=== PATIENT | female | born 1955 | race Caucasian/White ===

== ENCOUNTER 2025-05-10 00:39 | Inpatient (IN) ==
[2025-05-10 01:00] LABS: HCT - HEMATOCRIT 36.3 % (37.0-47.0); HGB - HEMOGLOBIN 11.9 g/dL (12.0-16.0); MEAN PLATELET VOLUME 10.7 fL (7.9-10.8); NRBC ABSOLUTE COUNT (AUTO) 0.00 x10^3/uL; NUCLEATED RED BLOOD CELLS AUTO 0.0 /100WBC; PLT - PLATELET COUNT 202 10^3/uL (130-450); RED CELL DISTRIBUTION WIDTH 12.9 % (12.0-15.0)
[2025-05-10 01:17] LABS: ALT ALANINE AMINOTRANSFERASE 26 IU/L (10-60); AST ASPARTATE AMINOTRANSFERASE 27 IU/L (10-42); BUN - BLOOD UREA NITROGEN 20 mg/dL (6-20); CARBON DIOXIDE - CO2 24 mmol/L (21-32); CREATININE 1.4 mg/dL (0.6-1.3); GFR - MDRD 37 (>89)
--- NOTE | 2025-05-10 01:17 | XRAY Report ---
PROCEDURE: XR Chest 1V INDICATIONS: Chest Pain TECHNIQUE: One view of the chest was acquired. COMPARISON: None. FINDINGS: Surgical changes and devices: None. Lungs and pleura: No pleural effusions or pneumothorax. No consolidation. Mediastinum: Mediastinal contours appear normal. Heart size is normal. Bones and chest wall: No suspicious bony lesions. Overlying soft tissues appear unremarkable. IMPRESSION: No acute cardiopulmonary process. Reviewed by: Giovanni Wright MD on 05/10/2025 1:15 AM PDT Approved by: Giovanni Wright MD on 05/10/2025 1:15 AM PDT Station ID: [id number]
--- NOTE | 2025-05-10 01:19 | ED Physician Documentation ---
History of Present Illness Stated complaint Stated Complaint: SYNCOPE Chief complaint Chief Complaint: Neuro Additonal information Additional information: 69yF presents with 7 days of uri symptoms, cough, soa, as well as nbnb n/v and diarrhea with fainting episode tonight. endorses body aches, fever and chills Meds/Allgy Home Medications Ambulatory Orders Medication Instructions Recorded Confirmed amitriptyline 50 mg tablet 50 mg PO DAILY 03/13/25 atenolol 50 mg tablet 50 mg PO DAILY 03/13/2504/19 citalopram 20 mg tablet 20 mg PO DAILY 03/13/2504/19 hydrochlorothiazide 12.5 mg capsule 12.5 mg PO QAM 05/06/25 losartan 25 mg tablet 25 mg PO DAILY 03/13/2504/19 melatonin 3 mg capsule 3 mg PO HS PRN sleep 5 05/06/25 prednisone 10 mg tablets in a dose See Rx Instructions PO .COMPLEX 03/13/25 05/06/25 pack #21 ea simvastatin 10 mg tablet 10 mg PO DAILY 03/13/2504/19 sumatriptan succinate 25 mg tablet 25 mg PO Q2H PRN mi graine headache 03/13/25 05/06/25 (Imitrex) tirzepatide (weight loss) 10 10 mg subcut QWEEK 05/06/25 mg/0.5 mL subcutaneous solution (Zepbound) Allergies Allergies Allergy/AdvReac Type Severity Reaction Status Date / Time No Known Drug Allergies Allergy Verified 05/10/25 00:44 PFSH Active Problems All Active Problems (Updated 05/10/25 @ 01:21 by Mary Madrigal MD) Hypoxia (Acute) Acute hypotension (Acute) Syncope (Acute) ELO (acute kidney injury) (Acute) Hypokalemia (Acute) Viral upper respiratory tract infection (Acute) Blurred vision, right eye (Acute) Headache (Acute) Medical History Medical History (Updated 05/10/25 @ 01:21 by Mary Madrigal MD) Ocular migraine Migraine High cholesterol Hypertension Social History Social History (Updated 05/07/25 @ 13:01 by Rm Le PA-C) Smoking Status: Smoker current status unk Living arrangement: At home Marital Status: Living Condition: With family Support Person: No Do you feel safe in your home environment?: Yes History of physical, verbal, emotional, or financial abuse?: No POLST Patient has POLST: No Exam Exam Vital Signs: Vital Signs x48h Temp Pulse Resp BP Pulse Ox 05/10/25 01:05 88 20 112/67 93 05/10/25 00:45 36.6 C 110 H 20 81/55 L 93 Constitutional normal general appearance, no apparent distress and average body habitus HENMT normocephalic, head/scalp atraumatic and oropharynx normal Eyes PERRL and EOMs intact bilaterally Neck/C-Spine visual inspection normal Chest inspection of chest normal Respiratory breath sounds equal bilaterally coarse bl breath sounds Cardiovascular regular rhythm noted tachycardic rate Gastrointestinal abdomen soft to palpation and nontender to palpation Genitourinary no CVA tenderness Extremities normal to inspection Results Vitals Vitals: Vital Signs - 24 hr 05/10/25 00:45 05/10/25 01:05 Temperature 36.6 C Temperature Source Temporal Artery Scan Pulse Rate 110 H 88 Respiratory Rate 20 20 Blood Pressure 81/55 L 112/67 O2 Saturation 93 93 O2 Source Room air Room air Pain Intensity 0 Oxygen O2 Source Room air Labs Labs: Laboratory Tests 05/10/25 00:56 WBC 16.5 H RBC 3.84 L Hgb 11.9 L Hct 36.3 L MCV 94.5 MCH 31.0 MCHC 32.8 RDW 12.9 Plt Count 202 MPV 10.7 Neut # (Auto) 13.2 H Lymph # (Auto) 2.0 Wilcox # (Auto) 1.1 H Eos # (Auto) 0.0 Baso # (Auto) 0.0 Absolute Nucleated RBC 0.00 Nucleated RBC % 0.0 Sodium 132 L Potassium 2.7 L Chloride 95 L Carbon Dioxide 24 Anion Gap 13.0 BUN 20 Creatinine 1.4 H Estimated GFR (MDRD) 37 L Glucose 143 H Calcium 8.0 L Total Bilirubin 1.2 H AST 27 ALT 26 Alkaline Phosphatase 64 Troponin I High Sens 10.1 Total Protein 6.1 L Albumin 3.4 Globulin 2.7 Albumin/Globulin Ratio 1.3 Lipase < 10 L PD Medical Decision Making ED course ED course: 69yF p/w persistent cough, soa, n/v/d with fainting episode tonight. Patient appears dehydrated on exam. leukocytosis, elo , hypokalemia on labwork. IV rocephin/azithro and IVF provided empirically given initial tachycardia and hypotension on arrival. d/w Dr. morin for admission Discharge Plan Discharge Patient Disposition: [facility] DC/Xfer Condition: Poor Clinical Impression: Hypokalemia, ELO (acute kidney injury), Syncope, Acute hypotension, Hypoxia Prescriptions: No Action atenolol 50 mg tablet 50 mg PO DAILY Zepbound 10 mg/0.5 mL solution 10 mg subcut QWEEK citalopram 20 mg tablet 20 mg PO DAILY losartan 25 mg tablet 25 mg PO DAILY amitriptyline 50 mg tablet 50 mg PO DAILY simvastatin 10 mg tablet 10 mg PO DAILY melatonin 3 mg capsule 3 mg PO HS PRN (Reason: sleep) sumatriptan succinate [Imitrex] 25 mg tablet 25 mg PO Q2H PRN (Reason: migraine headache) Rx Instructions: do not exceed 8 doses per 24 hrs hydrochlorothiazide 12.5 mg capsule 12.5 mg PO QAM prednisone 10 mg tablets,dose pack See Rx Instructions .ROUTE .COMPLEX Qty: 21 0RF Rx Instructions: orally per package directions Print Language: French
[2025-05-10 01:21] LABS: TROPONIN I HIGH SENSITIVITY 10.1 ng/L (2.3-14.8)
[2025-05-10] MEDS: cefTRIAXone 2 GM in SODIUM CHLORIDE 0.9% MINIBAG 100 ML IV STA (01:31)
[2025-05-10] MEDS: AZITHROMYCIN INJ 500 MG in SODIUM CHLORIDE 0.9% 250 ML IV STA (01:31)
[2025-05-10] MEDS: SODIUM CHLORIDE 0.9% 2,500 ML IV ONE (01:32)
[2025-05-10] MEDS: ONDANSETRON 4 MG/2 ML VIAL IVP STA (01:33)
[2025-05-10] MEDS: KETOROLAC 15 MG/ML VIAL IVP STA (01:41)
[2025-05-10] MEDS: POTASSIUM CHLOR 10 MEQ/100 ML 10 MEQ/100 ML BAG IV STA (01:43)
[2025-05-10] MEDS: POTASSIUM CHLORIDE 20 MEQ/15 ML UDC PO STA (01:54)
--- NOTE | 2025-05-10 02:20 | HISTORY & PHYSICAL EXAMINATION ---
Chief Complaint Chief Complaint Chief Complaint: nausea, vomitting and diarrhea History of Present Illness Admitted From Admitted From:: ED arrive via EMS History Obtained From Records Reviewed: Y History obtained from: ED physician and patient Exam Limitations: telemedicine History of Present Illness HPI Comment/Other: Mrs. Perez is a 69yoF with h/o hypertension, hyperlipidemia, and migraines. she presented to the ED for evaluation of nausea, vomiting and diarrhea that had been persistent for the past week. Symptoms were preceded by vague upper respiratory symptoms: cough, headache, congestion. She denies any sick contacts or recent travel. she underwent workup at an outside clinic. Her flu,covid, rsv was negative. however, she did not improve with conservative measure adn started to become increasingly weak. On the day of presentation she had a syncopal episode. She did not loose consciousness or hit her head. She explained that she has not been able to keep any food or water down. workup upon arrial to the ED, she was hypotensive with SBP 80s and was tachycardia with HR 120s. Labs were consistent with ELO , creatnine elevated at 1.4 (baseline 1). she also had electrolyte abnormalities. she was afebrile on presentation. chest xray did not pneumonia. This visit was performed using telehealth tools, including phone and live-video. patient provided verbal consent to complete this telemedicine encounter. During the time my interview and evaluation, the patient was located at [facility] in the [facility], I was located in [place]. . Review of Systems Status of ROS: 10 or more systems reviewed and unremarkable except as noted in history and below PFSH Active Problems All Active Problems (Updated 05/10/25 @ 02:17 by Noemi Muniz MD) Nausea vomiting and diarrhea (Acute) Sepsis (Acute) Hypoxia (Acute) Acute hypotension (Acute) Syncope (Acute) ELO (acute kidney injury) (Acute) Hypokalemia (Acute) Viral upper respiratory tract infection (Acute) Blurred vision, right eye (Acute) Headache (Acute) Medical History Medical History (Updated 05/10/25 @ 02:17 by Noemi Muniz MD) Ocular migraine Migraine High cholesterol Hypertension Social History Social History (Updated 05/07/25 @ 13:01 by Rm Le PA-C) Smoking Status: Smoker current status unk Living arrangement: At home Marital Status: Living Condition: With family Support Person: No Do you feel safe in your home environment?: Yes History of physical, verbal, emotional, or financial abuse?: No POLST Patient has POLST: No Meds/Allgy Home Medications Ambulatory Orders Medication Instructions Recorded Confirmed amitriptyline 50 mg tablet 50 mg PO DAILY 03/13/25 atenolol 50 mg tablet 50 mg PO DAILY 03/13/2504/19 citalopram 20 mg tablet 20 mg PO DAILY 03/13/2504/19 hydrochlorothiazide 12.5 mg capsule 12.5 mg PO QAM 05/06/25 losartan 25 mg tablet 25 mg PO DAILY 03/13/2504/19 melatonin 3 mg capsule 3 mg PO HS PRN sleep 5 05/06/25 prednisone 10 mg tablets in a dose See Rx Instructions PO .COMPLEX 03/13/25 05/06/25 pack #21 ea simvastatin 10 mg tablet 10 mg PO DAILY 03/13/2504/19 sumatriptan succinate 25 mg tablet 25 mg PO Q2H PRN mi graine headache 03/13/25 05/06/25 (Imitrex) tirzepatide (weight loss) 10 10 mg subcut QWEEK 05/06/25 mg/0.5 mL subcutaneous solution (Zepbound) Allergies Allergies Allergy/AdvReac Type Severity Reaction Status Date / Time No Known Drug Allergies Allergy Verified 05/10/25 00:44 Exam Exam Vital Signs: Vital Signs x48h Temp Pulse Resp BP Pulse Ox 05/10/25 01:05 88 20 112/67 93 05/10/25 00:45 36.6 C 110 H 20 81/55 L 93 Examination as recorded is based on patient and staff reported information as well as peripheral observation Constitutional normal general appearance and distress noted Respiratory breath sounds unequal, auscultation abnormal and rales noted Cardiovascular normal heart rate noted and regular rhythm noted Gastrointestinal abdomen normal to inspection Extremities normal to inspection Neurology no focal motor deficit noted and no sensory deficits noted Psychiatry mental status grossly normal and oriented x3 Sepsis Event Note (H) Evaluation Current Stage of Sepsis: Severe sepsis Possible source of Sepsis: positive Pulmonary, GI tract/intra-abdominal and Genitourinary Sepsis Criteria Sepsis Criteria: Recorded Heart Rate greater than 90 bpm, WBC count greater than 12,000 or less than 4000 and SBP less than 90 mmHg Conclusion/Plan Problem List (1) Sepsis: Plan: criteria of severe sepsis met on presentation: 80/50, HR110, RR 24, WBC 16.5, ELO -etiology suspected pulmonary and GI, like viral infection -chart reviewed: flu, covid , and rsv negative -chest xray reviewed adn negative for infiltrates or consolidation, will repeat after IVF -contnue with empiric antibiotics: rocephin and azithromycin, monitor for response and toxicity -incentive spirometry, -cultures pneding (2) Nausea vomiting and diarrhea: Plan: suspected viral infection. -will obtain UA to evalautate for possible etiology -continue with conservative managment: antiemetics, IVF, advance diet as tolerated to clear liquid -close monitor of electrlytes and volume status (3) ELO (acute kidney injury): Plan: pre-renal in the setting of GI volume loss and hypotension -trend renal labes -monitor UOP -avoid nephrotoxic medications (4) Viral upper respiratory tract infection: Plan: chest xray negative on presentation, will repeat in the AM -viral panel negative -continue with supportive care and empiric antibiotics Lab Results Lab results reviewed: Yes 05/10/25 00:56 05/10/25 00:56 Diagnostic Imaging Results Diagnostic Imaging Results: positive Final report reviewed Core Measures Anticipated LOS I expect patient to be DC'd or transferred within 96 hours.: Yes DVT/VTE - Prophylaxis VTE/DVT Device ordered at admit?: Yes Telemedicine Consult Details Provider Location & Consult Time Telemedicine consultation conducted via videoconferencing?: Yes
[2025-05-10 02:52] LABS: CORONAVIRUS 229E-RESP PCR NOT DETECTED; CORONAVIRUS HKU1-RESP PCR NOT DETECTED; CORONAVIRUS NL63-RESP PCR NOT DETECTED; CORONAVIRUS OC43-RESP PCR NOT DETECTED; HUMAN METAPNEUMOVIRUS NOT DETECTED; INFLUENZA A- RESP PCR PANEL NOT DETECTED; RHINOVIRUS/ENTEROVIRUS NOT DETECTED; SARS-CoV-2 -RESP PCR PANEL NOT DETECTED
[2025-05-10 02:53] LABS: B. PARAPERTUSSIS- RESP PCR PAN NOT DETECTED; B. PERTUSSIS- RESP PCR PANEL NOT DETECTED; C. PNEUMONIAE- RESP PCR PANEL NOT DETECTED; INFLUENZA B - RESP PCR PANEL NOT DETECTED; M. PNEUMONIAE- RESP PCR PANEL NOT DETECTED; PARAINFLUENZA VIRUS 1 DETECTED; PARAINFLUENZA VIRUS 2 NOT DETECTED; PARAINFLUENZA VIRUS 4 NOT DETECTED; RSV- RESP PCR PANEL NOT DETECTED
[2025-05-10] MEDS ORDERED: SODIUM CHLORIDE 0.9% 1,000 ML ONE (05:03)
[2025-05-10] MEDS ORDERED: ONDANSETRON ODT 4 MG TABLET TL PRN (05:04)
[2025-05-10] MEDS ORDERED: SODIUM CHLORIDE FLUSH 0.9% 10 ML SYRINGE IVP PRN (05:04)
[2025-05-10] MEDS: SODIUM CHLORIDE 0.9% 1,000 ML IV SCH (05:06)
[2025-05-10 07:52] LABS: BUN - BLOOD UREA NITROGEN 19.0 mg/dL (6-20); CARBON DIOXIDE - CO2 23.0 mmol/L (21-32); CREATININE 1.2 mg/dL (0.6-1.3); GFR - MDRD 44.0 (>89)
[2025-05-10] MEDS: AMITRIPTYLINE 25 MG TABLET PO SCH (08:40)
[2025-05-10] MEDS: POTASSIUM CHLORIDE 20 MEQ TABLET PO ONE ×2 (08:40→14:36)
[2025-05-10] MEDS: SODIUM CHLORIDE FLUSH 0.9% 10 ML SYRINGE IVP SCH (08:41)
[2025-05-10] MEDS ORDERED: SIMVASTATIN 10 MG PO SCH (09:00)
[2025-05-10] MEDS: ONDANSETRON 4 MG/2 ML VIAL IVP PRN (14:36)
--- NOTE | 2025-05-10 15:10 | XRAY Report ---
PROCEDURE: XR Chest 1V INDICATIONS: shortness of breath TECHNIQUE: One view of the chest was acquired. COMPARISON: 05/10/2025. FINDINGS: Surgical changes and devices: None. Lungs and pleura: No pleural effusions or pneumothorax. No consolidation. Mediastinum: Mediastinal contours appear normal. Heart size is normal. Bones and chest wall: No suspicious bony lesions. Overlying soft tissues appear unremarkable. IMPRESSION: No acute cardiopulmonary process. Reviewed by: Pedro Varma MD on 05/10/2025 3:09 PM PDT Approved by: Pedro Varma MD on 05/10/2025 3:09 PM PDT Station ID: [id number]
--- NOTE | 2025-05-10 15:28 | PHARMACY PROGRESS NOTE ---
Best Possible Medication History Admit Date and Time: 05/10/25 0152 Home Medications Medication Instructions Recorded Confirmed Type atenolol 50 mg tablet 50 mg PO DAILY 03/13/2504/20 History citalopram 20 mg tablet 20 mg PO DAILY 03/13/2504/20 History melatonin 3 mg capsule 3 mg PO HS PRN sleep 5 05/10/25 History sumatriptan succinate 25 mg tablet 25 mg PO Q2H PRN mi graine headache 03/13/25 05/10/25 History (Imitrex) tirzepatide (weight loss) 10 5 mg subcut QWEEK 5 05/10/25 History mg/0.5 mL subcutaneous solution (Zepbound) losartan 100 1 tab PO DAILY 05/10/2504/20 History mg-hydrochlorothiazide 25 mg tablet Processed by: Pharmacy (Medication reconciliation ) Medications reviewed in ED?: No Medication History completed: Yes Patient Interview: Completed Secondary Source(s): Insurance records (Called and discussed with [facility] ) [facility] Statement: As the person ultimately responsible for medication therapy, providers are able to order a medication from an existing home medication list in [facility] via the "Reconcile Routine" prior to Confirmation of that medication by marketing support coordinator. Such practice is discouraged except when the physician, in their clinical judgment, deems that a medical need exists for a medication without regard to previous use.
[2025-05-10] MEDS: cefTRIAXone 1 GM in SODIUM CHLORIDE 0.9% MINIBAG 100 ML IV SCH (20:12)
[2025-05-10] MEDS: PRAVASTATIN 10 MG TABLET PO SCH (20:12)
[2025-05-11] MEDS: AZITHROMYCIN INJ 500 MG in SODIUM CHLORIDE 0.9% 250 ML IV SCH (00:15)
[2025-05-11] MEDS: ACETAMINOPHEN 325 MG TABLET PO PRN (05:15)
[2025-05-11 10:02] LABS: HCT - HEMATOCRIT 32.4 % (37.0-47.0); HGB - HEMOGLOBIN 10.8 g/dL (12.0-16.0); MEAN PLATELET VOLUME 10.1 fL (7.9-10.8); PLT - PLATELET COUNT 252.0 10^3/uL (130-450); RED CELL DISTRIBUTION WIDTH 13.2 % (12.0-15.0)
[2025-05-11] MEDS: BENZOCAINE/MENTHOL LOZENGE MM PRN (10:11)
[2025-05-11 10:19] LABS: BUN - BLOOD UREA NITROGEN 9.0 mg/dL (6-20); CARBON DIOXIDE - CO2 23.0 mmol/L (21-32); CREATININE 0.9 mg/dL (0.6-1.3); GFR - MDRD 62.0 (>89)
--- NOTE | 2025-05-11 11:22 | PROVIDER PROGRESS NOTE ---
Subjective Subjective Subjective: Patient had 1 episode of loose bowel movements this morning. She is feeling slightly better. She denies any fevers or chills. Current Medications Current Medications Current Medications: Current Medications Generic Name Dose Route Start Last Admin Trade Name Freq PRN Reason Stop Dose Admin Acetaminophen 650 mg 05/10/25 05:04 05/11/25 05:15 Acetaminophen 325 Mg Tablet PO 650 mg Q4HR PRN Administration Pain 1 to 4, or Fever Amitriptyline HCl 50 mg 05/10/25 09:00 05/11/25 09:28 Amitriptyline 25 Mg Tablet PO 50 mg DAILY CATY Administration Ceftriaxone Sodium 1 gm/ 100 mls @ 200 mls/hr 05/10/25 21:00 05/10/25 21:38 Sodium Chloride IV Infused Q24H CATY Infusion Azithromycin 500 mg/ Sodium 250 mls @ 250 mls/hr 05/10/25 22:00 05/11/25 01:30 Chloride IV Infused Q24H CATY Infusion Sodium Chloride 1,000 mls @ 100 mls/hr 05/10/25 05:04 05/11/25 04:02 Normal Saline 0.9% IV 100 mls/hr .Q10H CATY Administration Lorazepam 0.5 mg 05/10/25 05:04 05/10/25 19:57 Lorazepam 0.5 Mg Tablet SL 0.5 mg Q6H PRN Administration Anxiety Magnesium Oxide 400 mg 05/11/25 11:00 Magnesium Oxide 400 Mg Tablet PO DAILYWM CATY Melatonin 3 mg 05/11/25 21:00 Melatonin 3 Mg Tablet PO QPM CATY Ondansetron HCl 4 mg 05/10/25 05:04 Ondansetron Odt 4 Mg Tablet TL Q6HR PRN Nausea / Vomiting Ondansetron HCl 4 mg 05/10/25 05:04 05/10/25 14:36 Ondansetron 4 Mg/2 Ml Vial IVP 4 mg Q6HR PRN Administration Nausea / Vomiting Pravastatin Sodium 20 mg 05/10/25 21:00 05/10/25 20:12 Pravastatin 10 Mg Tablet PO 20 mg QPM CATY Administration Sodium Chloride 10 ml 05/10/25 05:04 Sodium Chloride Flush 0.9% 10 Ml Syringe IVP PRN PRN NEEDED PER PROVIDER ORDERS Sodium Chloride 10 ml 05/10/25 09:00 05/11/25 09:28 Sodium Chloride Flush 0.9% 10 Ml Syringe IVP Not Given 0100,0900,1700 CATY Sumatriptan Succinate 25 mg 05/10/25 05:04 05/10/25 11:20 Sumatriptan 25 Mg Tablet PO 25 mg Q2H PRN Administration migraine headache Throat Lozenges 1 lozenge 05/11/25 09:37 05/11/25 10:11 Benzocaine/Menthol Lozenge MM 1 lozenge Q2HR PRN Administration Throat pain Objective Vital Signs/Intake & Output Reviewed Vital Signs: Yes Vital Signs: Vital Signs x48h Temp Pulse Resp BP Pulse Ox 05/11/25 08:19 97.9 F 97 16 139/94 H 97 05/11/25 05:19 98.6 F 95 20 112/73 97 Intake & Output: Intake & Output 05/08/25 05/09/25 05/10/25 05/11/25 23:59 23:59 23:59 23:59 Intake Total 4880 / 4880 1258 / 1258 Output Total 250 / 250 Balance 4630 / 4630 1258 / 1258 Weight (kg) 76.7 kg Objective General Appearance: positive No acute distress and Alert; negative Anxious Eyes Bilateral: positive Normal inspection, PERRL and EOMI ENT: positive ENT inspection nml, Pharynx nml and No signs of dehydration Neck: positive Nml inspection, Thyroid nml and No JVD Respiratory: positive Chest non-tender, No respiratory distress and Breath sounds nml; negative Wheezes, Rales or Rhonchi Cardiovascular: positive Regular rate & rhythm, No murmur and No gallop; negative Tachycardia or Systolic murmur Abdomen: positive Non-tender, No organomegaly and No distention; negative Guarding or Splenomegaly Back: positive Nml inspection; negative CVA tenderness (R) or CVA tenderness (L) Skin: positive Color nml, No rash, Warm and Dry Extremities: positive Non-tender, Full ROM, Nml appearance and No pedal edema Neurologic/Psychiatric: positive Oriented x3, Motor nml and Mood/affect nml Lab Results 05/11/25 09:55 05/11/25 09:55 Other Labs: Lab Results x24hrs 05/11/25 05/10/25 Range/Units 09:55 12:38 WBC 9.6 (4.8-10.8) x10^3/uL RBC 3.43 L (4.20-5.40) 10^6/uL Hgb 10.8 L (12.0-16.0) g/dL Hct 32.4 L (37.0-47.0) % MCV 94.5 (81.0-99.0) fL MCH 31.5 H (27.0-31.0) pg MCHC 33.3 (32.0-36.0) g/dL RDW 13.2 (12.0-15.0) % Plt Count 252 (130-450) 10^3/uL MPV 10.1 (7.9-10.8) fL Sodium 136 (135-145) mmol/L Potassium 3.4 L 3.0 L (3.5-4.5) mmol/L Chloride 108 (101-111) mmol/L Carbon Dioxide 23 (21-32) mmol/L Anion Gap 5.0 L (6-13) BUN 9 (6-20) mg/dL Creatinine 0.9 (0.6-1.3) mg/dL Estimated GFR (MDRD) 62 L (>89) Glucose 95 (74-104) mg/dL Calcium 7.2 L (8.5-10.3) mg/dL Magnesium 1.5 L (1.7-2.3) mg/dL Sepsis Event Note (H) Evaluation Current Stage of Sepsis: Severe sepsis Possible source of Sepsis: positive Pulmonary, GI tract/intra-abdominal and Genitourinary Sepsis Criteria Sepsis Criteria: Recorded Heart Rate greater than 90 bpm, WBC count greater than 12,000 or less than 4000 and SBP less than 90 mmHg Assessment/Plan Problem List (1) Sepsis: Impression: Patient presented with tachycardia, leukocytosis, as well as tachypnea. Respiratory viral panel positive for parainfluenza. Continue supportive care with IV fluids, pain control. She is also covered for bacterial pneumonia with Rocephin and azithromycin. Patient still with poor appetite, ongoing diarrhea; stool studies are pending. Will keep for one more day for IV hydration as she is severely dehydrated. Will also keep for IV antibiotics. Qualifiers: Sepsis type: sepsis due to unspecified organism Sepsis acute organ dysfunction status: without acute organ dysfunction Qualified Code(s): A41.9 - Sepsis, unspecified organism (2) Nausea vomiting and diarrhea: Impression: Diarrhea has improved and quantity. Stool studies are pending. Continue IV hydration. (3) ELO (acute kidney injury): Impression: Improving with IV fluids. (4) Hypokalemia: Impression: Repleted. Continue to trend. Due to GI losses with ongoing diarrhea. (5) Migraine: Impression: Continue home amitriptyline, sumatriptan as needed. Qualifiers: Migraine type: unspecified Status migrainosus presence: without status migrainosus Intractability: not intractable Qualified Code(s): G43.909 - Migraine, unspecified, not intractable, without status migrainosus (6) High cholesterol: Impression: Continue statin. (7) Hypertension: Impression: Patient not currently on antihypertensives. Blood pressure is improving. Qualifiers: Hypertension type: unspecified Qualified Code(s): I10 - Essential (primary) hypertension
[2025-05-11] MEDS: POTASSIUM CHLORIDE 20 MEQ TABLET PO ONE (12:29)
[2025-05-11] MEDS: MAGNESIUM OXIDE 400 MG TABLET PO SCH (12:30)
[2025-05-11] MEDS: MELATONIN 3 MG TABLET PO SCH (22:42)
[2025-05-12 07:35] LABS: BUN - BLOOD UREA NITROGEN 6.0 mg/dL (6-20); CARBON DIOXIDE - CO2 22.0 mmol/L (21-32); CREATININE 0.8 mg/dL (0.6-1.3); GFR - MDRD 71.0 (>89)
[2025-05-12 07:37] LABS: HCT - HEMATOCRIT 33.4 % (37.0-47.0); HGB - HEMOGLOBIN 10.9 g/dL (12.0-16.0); MEAN PLATELET VOLUME 10.1 fL (7.9-10.8); PLT - PLATELET COUNT 310.0 10^3/uL (130-450); RED CELL DISTRIBUTION WIDTH 13.2 % (12.0-15.0)
--- NOTE | 2025-05-12 09:33 | Discharge Summary ---
"Discharge Summary Admit Date: 05/10/25 Discharge Date: 05/13/25 Discharging Provider: Dr. Erick Barrett Primary Care Provider: Adelso Jansen Code Status: Attempt Resuscitation Discharge Facility Name: Home, self care DIAGNOSES Discharge Diagnoses with Status of Each Condition: Sepsisresolved. Likely attributed to parainfluenza. Patient was also covered for bacterial pneumonia, and will complete her oral antibiotic course at home. Her diarrhea is improving. Stool studies are negative for any infection. Received IV fluids while here. Appetite is improving, encourage continued adequate nutrition and hydration at home. Bright red blood per rectumpatient 1 episode of bright red blood. Her hemoglobin has been stable. She gets colonoscopies done every 3 years, although she is not sure why. She is due for her next one in about a year, advised to follow-up with them sooner if this returns. Nausea, vomiting, diarrheaimproving. Acute kidney injuryresolved. Hypokalemiaresolved. Migrainecontinue home amitriptyline, sumatriptan. Patient had intractable migraine while here. She has gotten an MRI done in 03/13, which was normal. Head CT was repeated here High cholesterolcontinue statin. Hypertensionpatient needs close outpatient follow-up to initiate antihypertensives. HPI History of Present Illness: Per Dr Muniz: Mrs. Perez is a 69yoF with h/o hypertension, hyperlipidemia, and migraines. she presented to the ED for evaluation of nausea, vomiting and diarrhea that had been persistent for the past week. Symptoms were preceded by vague upper respiratory symptoms: cough, headache, congestion. She denies any sick contacts or recent travel. she underwent workup at an outside clinic. Her flu,covid, rsv was negative. however, she did not improve with conservative measure adn started to become increasingly weak. On the day of presentation she had a syncopal episode. She did not loose consciousness or hit her head. She explained that she has not been able to keep any food or water down. workup upon arrial to the ED, she was hypotensive with SBP 80s and was tachycardia with HR 120s. Labs were consistent with ELO , creatnine elevated at 1.4 (baseline 1). she also had electrolyte abnormalities. she was afebrile on presentation. chest xray did not pneumonia. This visit was performed using telehealth tools, including phone and live-video. patient provided verbal consent to complete this telemedicine encounter. During the time my interview and evaluation, the patient was located at [facility] in the [facility], I was located in [place]. CONSULTS | PROCEDURES Procedures: Chest x-ray, CT head HOSPITAL COURSE Hospital Course: Patient is a 69-year-old female with a history of hypertension and migraine disorder who presented for nausea, vomiting, diarrhea, as well as weakness. She tested positive for parainfluenza on a respiratory viral panel. Due to persistent fevers, and cough, she was also cover for possible superimposed bacterial pneumonia with Rocephin and azithromycin. She will complete her course with Augmentin at home. While here, she was also having diarrhea. Parainfluenza can really cause GI symptoms. Stool studies were also sent, which were negative. This slowly improved, and her appetite is slowly improving as well. On 05/12, she had an episode of bright red blood per rectum. Her hemoglobin was monitored for 24 hours, and it was stable. She gets colonoscopies every 3 years, and she was advised to follow-up in the outpatient setting if this were to happen again. During her stay here, she had an intractable migraine. MRI from 03/13 was reviewed, and it was negative. She was started on her home amitriptyline and received Imitrex as needed. CT head was also repeated, and it was negative. She was deemed suitable for discharge home with close follow-up for colonoscopy, as well as with her primary care provider. ALLERGIES Allergies Allergy/AdvReac Type Severity Reaction Status Date / Time No Known Drug Allergies Allergy Verified 05/10/25 00:44 MEDICATIONS Ambulatory Orders Medication Instructions Recorded Confirmed atenolol 50 mg tablet 50 mg PO DAILY 03/13/2504/20 citalopram 20 mg tablet 20 mg PO DAILY 03/13/2504/20 melatonin 3 mg capsule 3 mg PO HS PRN sleep 5 05/10/25 sumatriptan succinate 25 mg tablet 25 mg PO Q2H PRN mi graine headache 03/13/25 05/10/25 (Imitrex) tirzepatide (weight loss) 10 5 mg subcut QWEEK 5 05/10/25 mg/0.5 mL subcutaneous solution (Zepbound) losartan 100 1 tab PO DAILY 05/10/2504/20 mg-hydrochlorothiazide 25 mg tablet Augmentin 875 mg-potassium 1 tab PO BID 2 days #4 tabs 05/12/25 clavulanate 125 mg tablet magnesium oxide 400 mg (241.3 mg 400 mg PO DAILYWM #30 tabs 05/12/25 magnesium) tablet PHYSICAL EXAM AT DISCHARGE Vital Signs: Vital Signs x48h Temp Pulse Resp BP Pulse Ox 05/13/25 09:45 97.9 F 83 18 164/105 H 98 General Appearance: positive No acute distress and Alert; negative Anxious Eyes Bilateral: positive Normal inspection, PERRL and EOMI ENT: positive ENT inspection nml, Pharynx nml and No signs of dehydration Neck: positive Nml inspection, Thyroid nml and No JVD Respiratory: positive Chest non-tender, No respiratory distress and Breath sounds nml; negative Wheezes, Rales or Rhonchi Cardiovascular: positive Regular rate & rhythm, No murmur and No gallop; negative Tachycardia or Systolic murmur Abdomen: positive Non-tender, No organomegaly and No distention; negative Guarding or Splenomegaly Back: positive Nml inspection; negative CVA tenderness (R) or CVA tenderness (L) Skin: positive Color nml, No rash, Warm and Dry Extremities: positive Non-tender, Full ROM, Nml appearance and No pedal edema Neurologic/Psychiatric: positive Oriented x3, Motor nml and Mood/affect nml LABS 05/13/25 04:46 05/13/25 04:46 SEPSIS Current Stage of Sepsis: Resolved Possible source of Sepsis: Pulmonary Sepsis Criteria: Recorded Heart Rate greater than 90 bpm, WBC count greater than 12,000 or less than 4000 and SBP less than 90 mmHg FOLLOW UP Follow Up: Follow up with PCP. TIME SPENT Time Spent in Discharge (Minutes): 35 Discharge Plan Discharge Patient Disposition: Home, Self Care Condition: Fair Prescriptions: New magnesium oxide 400 mg (241.3 mg magnesium) Tablet 400 mg PO DAILYWM Qty: 30 0RF amoxicillin-pot clavulanate 875-125 mg tablet 1 tab PO BID 2 Days Qty: 4 0RF Continued atenolol 50 mg tablet 50 mg PO DAILY Zepbound 10 mg/0.5 mL solution 5 mg subcut QWEEK Rx Instructions: ON SATURDAYS citalopram 20 mg tablet 20 mg PO DAILY melatonin 3 mg capsule 3 mg PO HS PRN (Reason: sleep) sumatriptan succinate [Imitrex] 25 mg tablet 25 mg PO Q2H PRN (Reason: migraine headache) Rx Instructions: do not exceed 8 doses per 24 hrs losartan-hydrochlorothiazide 100-25 mg tablet 1 tab PO DAILY Activity Restrictions: Activity as Tolerated Diet: Regular Health Concerns: You came in because you were feeling short of breath, had fevers and chills, and were having a lot of diarrhea. You tested positive for a respiratory virus called Parainfluenza. While you have been here, due to the severity of your illness, we also covered you for any possible superimposed bacterial pneumonia with IV antibiotics. Your diarrhea is slowly getting better. You were hydrated for the past few days with IV fluids. When you go home, you will require completion of 2 more days of oral antibiotics. Please also continue your magnesium supplementation. Please continue to maintain adequate hydration; we talked about continue to drink lots of water, as well as electrolyte drinks like Gatorade. If your appetite is poor, we talked about supplementing your meals with Ensure, or protein drinks. This should slowly come back as you start to feel better. You also had an intractable migraine while you were here. I know you had imaging done of your head from a couple months ago (a CT scan and MRI), but we repeated the CT scan of your head today - this was normal. I will like you to follow-up closely with your primary care provider in the next 1 to 2 weeks. We are glad you are feeling better, thanks for allowing us to care of you. Print Language: Anguill[place] Patient Instructions: Treating Diarrhea Stand Alone Forms: PCP List Vitals documented within 30 minutes of discharge?: Yes"
--- NOTE | 2025-05-12 12:40 | PROVIDER PROGRESS NOTE ---
Subjective Subjective Subjective: Patient's fevers, chills, cough have improved. He while having another bowel movement, she noted bright red blood in the rectum. She gets colonoscopies every 3 years, and her last one was 2 years ago, and was normal. She does not have any hemorrhoids per her knowledge. She is not on any blood thinners. When standing up, she also felt dizzy and lightheaded. She continues to have migraines while here. She would like to try more solid states today. Current Medications Current Medications Current Medications: Current Medications Generic Name Dose Route Start Last Admin Trade Name Freq PRN Reason Stop Dose Admin Acetaminophen 650 mg 05/10/25 05:04 05/11/25 05:15 Acetaminophen 325 Mg Tablet PO 650 mg Q4HR PRN Administration Pain 1 to 4, or Fever Amitriptyline HCl 50 mg 05/10/25 09:00 05/12/25 09:17 Amitriptyline 25 Mg Tablet PO 50 mg DAILY CATY Administration Ceftriaxone Sodium 1 gm/ 100 mls @ 200 mls/hr 05/10/25 21:00 05/11/25 22:06 Sodium Chloride IV Infused Q24H CATY Infusion Azithromycin 500 mg/ Sodium 250 mls @ 250 mls/hr 05/10/25 22:00 05/11/25 23:15 Chloride IV Infused Q24H CATY Infusion Sodium Chloride 1,000 mls @ 100 mls/hr 05/10/25 05:04 05/12/25 11:25 Normal Saline 0.9% IV 100 mls/hr .Q10H CATY Infusion Lorazepam 0.5 mg 05/10/25 05:04 05/12/25 02:33 Lorazepam 0.5 Mg Tablet SL 0.5 mg Q6H PRN Administration Anxiety Magnesium Oxide 400 mg 05/11/25 11:00 05/12/25 09:17 Magnesium Oxide 400 Mg Tablet PO 400 mg DAILYWM CATY Administration Melatonin 3 mg 05/11/25 21:00 05/11/25 22:42 Melatonin 3 Mg Tablet PO 3 mg QPM CATY Administration Ondansetron HCl 4 mg 05/10/25 05:04 Ondansetron Odt 4 Mg Tablet TL Q6HR PRN Nausea / Vomiting Ondansetron HCl 4 mg 05/10/25 05:04 05/10/25 14:36 Ondansetron 4 Mg/2 Ml Vial IVP 4 mg Q6HR PRN Administration Nausea / Vomiting Pravastatin Sodium 20 mg 05/10/25 21:00 05/11/25 21:31 Pravastatin 10 Mg Tablet PO 20 mg QPM CATY Administration Sodium Chloride 10 ml 05/10/25 05:04 Sodium Chloride Flush 0.9% 10 Ml Syringe IVP PRN PRN NEEDED PER PROVIDER ORDERS Sodium Chloride 10 ml 05/10/25 09:00 05/12/25 09:18 Sodium Chloride Flush 0.9% 10 Ml Syringe IVP Not Given 0100,0900,1700 CATY Sumatriptan Succinate 25 mg 05/10/25 05:04 05/12/25 02:33 Sumatriptan 25 Mg Tablet PO 25 mg Q2H PRN Administration migraine headache Throat Lozenges 1 lozenge 05/11/25 09:37 05/12/25 09:25 Benzocaine/Menthol Lozenge MM 1 lozenge Q2HR PRN Administration Throat pain Objective Vital Signs/Intake & Output Reviewed Vital Signs: Yes Vital Signs: Vital Signs x48h Temp Pulse Resp BP Pulse Ox 05/12/25 09:16 97.7 F 81 16 146/88 H 97 Intake & Output: Intake & Output 05/09/25 05/10/25 05/11/25 05/12/25 23:59 23:59 23:59 23:59 Intake Total 4880 / 4880 4733 / 4733 1663 / 1663 Output Total 250 / 250 0 / 0 Balance 4630 / 4630 4733 / 4733 1663 / 1663 Weight (kg) 76.7 kg Objective General Appearance: positive No acute distress and Alert; negative Anxious Eyes Bilateral: positive Normal inspection, PERRL and EOMI ENT: positive ENT inspection nml, Pharynx nml and No signs of dehydration Neck: positive Nml inspection, Thyroid nml and No JVD Respiratory: positive Chest non-tender, No respiratory distress and Breath sounds nml; negative Wheezes, Rales or Rhonchi Cardiovascular: positive Regular rate & rhythm, No murmur and No gallop; negative Tachycardia or Systolic murmur Abdomen: positive Non-tender, No organomegaly and No distention; negative Guarding or Splenomegaly Back: positive Nml inspection; negative CVA tenderness (R) or CVA tenderness (L) Skin: positive Color nml, No rash, Warm and Dry Extremities: positive Non-tender, Full ROM, Nml appearance and No pedal edema Neurologic/Psychiatric: positive Oriented x3, Motor nml and Mood/affect nml Lab Results 05/12/25 15:59 05/12/25 06:53 Other Labs: Lab Results x24hrs 05/12/25 Range/Units 06:53 WBC 7.0 (4.8-10.8) x10^3/uL RBC 3.38 L (4.20-5.40) 10^6/uL Hgb 10.9 L (12.0-16.0) g/dL Hct 33.4 L (37.0-47.0) % MCV 98.8 (81.0-99.0) fL MCH 32.2 H (27.0-31.0) pg MCHC 32.6 (32.0-36.0) g/dL RDW 13.2 (12.0-15.0) % Plt Count 310 (130-450) 10^3/uL MPV 10.1 (7.9-10.8) fL Sodium 138 (135-145) mmol/L Potassium 3.5 (3.5-4.5) mmol/L Chloride 110 (101-111) mmol/L Carbon Dioxide 22 (21-32) mmol/L Anion Gap 6.0 (6-13) BUN 6 (6-20) mg/dL Creatinine 0.8 (0.6-1.3) mg/dL Estimated GFR (MDRD) 71 L (>89) Glucose 80 (74-104) mg/dL Calcium 7.4 L (8.5-10.3) mg/dL Magnesium 1.6 L (1.7-2.3) mg/dL Sepsis Event Note (H) Evaluation Current Stage of Sepsis: Severe sepsis Possible source of Sepsis: positive Pulmonary, GI tract/intra-abdominal and Genitourinary Sepsis Criteria Sepsis Criteria: Recorded Heart Rate greater than 90 bpm, WBC count greater than 12,000 or less than 4000 and SBP less than 90 mmHg Assessment/Plan Problem List (1) Sepsis: Impression: Rseolved. Patient presented with tachycardia, leukocytosis, as well as tachypnea. Respiratory viral panel positive for parainfluenza. She is also covered for bacterial pneumonia with Rocephin and azithromycin. Patient still with poor appetite, ongoing diarrhea; stool studies are pending. Will keep for one more day for IV hydration as she is severely dehydrated. Will also keep for IV antibiotics. Qualifiers: Sepsis acute organ dysfunction status: without acute organ dysfunction Sepsis type: sepsis due to unspecified organism Qualified Code(s): A41.9 - Sepsis, unspecified organism (2) Bright red blood per rectum: Impression: Today, patient had bright red blood per rectum. No history of hemorrhoids. Gets colonoscopies every 3 years, but does not know why she gets them so frequently. Has had multiple polyps removed in the past. Last one was 2 years ago. She is also symptomatic with dizziness upon standing. Stool studies are still pending. Continue to trend H&H overnight. (3) Nausea vomiting and diarrhea: Impression: Diarrhea has improved and quantity. Stool studies are pending. Continue IV hydration. (4) ELO (acute kidney injury): Impression: Improving with IV fluids. (5) Hypokalemia: Impression: Repleted. Continue to trend. Due to GI losses with ongoing diarrhea. (6) Migraine: Impression: Continue home amitriptyline, sumatriptan as needed. Qualifiers: Intractability: not intractable Migraine type: unspecified Status migrainosus presence: without status migrainosus Qualified Code(s): G43.909 - Migraine, unspecified, not intractable, without status migrainosus (7) High cholesterol: Impression: Continue statin. (8) Hypertension: Impression: Patient not currently on antihypertensives. Blood pressure is improving. Qualifiers: Hypertension type: unspecified Qualified Code(s): I10 - Essential (primary) hypertension
[2025-05-12 16:04] LABS: HCT - HEMATOCRIT 31.3 % (37.0-47.0); HGB - HEMOGLOBIN 10.6 g/dL (12.0-16.0)
[2025-05-13 05:38] LABS: HCT - HEMATOCRIT 30.8 % (37.0-47.0); HGB - HEMOGLOBIN 10.4 g/dL (12.0-16.0); MEAN PLATELET VOLUME 9.8 fL (7.9-10.8); PLT - PLATELET COUNT 329.0 10^3/uL (130-450); RED CELL DISTRIBUTION WIDTH 12.9 % (12.0-15.0)
[2025-05-13 05:59] LABS: BUN - BLOOD UREA NITROGEN 5.0 mg/dL (6-20); CARBON DIOXIDE - CO2 25.0 mmol/L (21-32); CREATININE 0.8 mg/dL (0.6-1.3); GFR - MDRD 71.0 (>89)
[2025-05-13 11:52] LABS: C DIFFICILE TOXIN A/B Not Detected; CAMPYLOBACTER Not Detected; PLESIOMONAS SHIGELLOIDES Not Detected; SALMONELLA Not Detected; VIBRIO Not Detected; VIBRIO CHOLERAE Not Detected
[2025-05-13 11:53] LABS: ADENOVIRUS F 40/41 Not Detected; CRYPTOSPORIDIUM Not Detected; CYCLOSPORA CAYETANENSIS Not Detected; ENTAMOEBA HISTOLYTICA Not Detected; ENTEROAGGREGATIVE E COLI Not Detected; ENTEROPATHOGENIC E COLI Not Detected; ENTEROTOXIGENIC E COLI Not Detected; GIARDIA LAMBLIA Not Detected; SHIGA-TOXIN-PRODUCING E COLI Not Detected; SHIGELLA/ENTEROINVASIVE E COLI Not Detected; YERSINIA ENTEROCOLITICA Not Detected
[2025-05-13 11:54] LABS: ASTROVIRUS Not Detected; NOROVIRUS GI/GII Not Detected; ROTAVIRUS A Not Detected
--- NOTE | 2025-05-13 16:22 | CT Report ---
PROCEDURE: CT Head WO INDICATIONS: intractable migraine TECHNIQUE: CT of the head was performed, without intravenous contrast. Reformats: Coronal and sagittal. For radiation dose reduction, the following was used: automated exposure control, adjustment of mA and/or kV according to patient size. COMPARISON: 03/13/2025. FINDINGS: Image quality: Diagnostic. CSF spaces: Basal cisterns are patent. No extra-axial fluid collections. Ventricles are normal in size and shape. Brain: No midline shift. No intracranial mass effect or hemorrhage. Tamayo- white matter interface is normal. Skull and face: Calvarium and visualized facial bones are intact, without suspicious lesions. Sinuses: Paranasal sinus disease with air-fluid levels in the bilateral maxillary sinuses, greater on the right and partial vesication the ethmoid air cells and sphenoid sinuses. The mastoids are clear. IMPRESSION: 1.No acute intracranial pathology. 2.Paranasal sinus disease with air-fluid levels concerning for acute sinusitis. Reviewed by: Pedro Castaneda MD on 05/13/2025 4:21 PM PDT Approved by: Pedro Castaneda MD on 05/13/2025 4:21 PM PDT Station ID: [id number]
[2025-05-13 18:56] VITALS: BP 146/99; TEMP 97.5; O2SAT 99
[2025-05-14 13:48] LABS: SAPOVIRUS Not Detected (Not Detected)
== END 2025-05-13 17:45 | disposition home or self-care (01) | DRG 871 ==
LOC: ED 00:39 → MS2 01:52
PROVIDERS: ADMIT Hospitalist; ATTEND Hospitalist